=== PATIENT | female | born 1975 | race Two or more races ===

== ENCOUNTER 2016-11-06 19:27 | Emergency (ER) | payer MEDICAID ==
[~2016-11-06] VITALS: Ht 165.1 cm; Wt 72.6 kg
[2016-11-06 19:30] VITALS: BP 122/86
--- NOTE | 2016-11-06 19:40 | Emergency Room Report ---
History of Present Illness General Chief Complaint: Abdominal Pain Source: Patient, EMS Present Illness HPI 41YOF BIBEMS with acute left sided abd pain with nausea/vomiting for last 30 minutes. No associated fever/chills, urinary complaints, diarrhea. No previous abd pelvic surgery. Denies DM, HTN, other medical problems. Received PO zofran from EMS with improvement. No sick contacts. Allergies: Coded Allergies: No Known Allergies (Unverified , 11/06/16) Patient History Past Medical History: none Past Surgical History: none Pertinent Family History: none Social History: Denies: alcohol use, drug use, smoking Last Menstrual Period: UNK Now: No Immunizations: UTD Reviewed Nursing Documentation: PMH: Agreed, PSxH: Agreed Nursing Documentation-PMH Hx Diabetes: Yes Review of Systems All Other Systems: negative except mentioned in HPI Physical Exam Vital Signs Date Time Temp Pulse Resp B/P Pulse Ox O2 Delivery O2 Flow Rate FiO2 11/06/16 19:17 98.1 86 18 119/82 98 Room Air Sp02 EP Interpretation: reviewed, normal General Appearance: normal inspection, well appearing, no apparent distress, alert, GCS 15, non-toxic, other Head: normocephalic, atraumatic Eyes: bilateral eye EOMI, bilateral eye PERRL ENT: normal ENT inspection, hearing grossly normal, normal voice Neck: normal inspection, full range of motion, supple, no bony tend Respiratory: normal inspection, lungs clear, normal breath sounds, no respiratory distress, no retraction, no wheezing Cardiovascular #1: regular rate, rhythm, no edema Gastrointestinal: normal inspection, normal bowel sounds, non tender, soft, no mass, no guarding, no hernia, no pulsatile mass, no rebound, other - No rebound , guarding or other peritoneal signs Genitourinary: no CVA tenderness Musculoskeletal: normal inspection, back normal, normal range of motion, Bharath' s Sign negative Neurologic: normal inspection, alert, oriented x3, responsive, inspector outside steam distribution III-XII nml as tested, motor strength/tone normal, speech normal Psychiatric: normal inspection, judgement/insight normal, mood/affect normal Skin: normal inspection, normal color, no rash Medical Decision Making Diagnostic Impression: Primary Impression: Left lateral abdominal pain Additional Impressions: Nausea & vomiting Qualified Codes: R11.2 - Nausea with vomiting, unspecified Pyelonephritis ER Course 41YOF with likely acute pyelo given grossly infected urine and left flank pain No leuks. Lactate normal. Afebrile. Improved with IV Abx. 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 No obstruction Advised PMD followup for concern for elevated glucose, possibly new onset diabetes DC home Last Vital Signs Date Time Temp Pulse Resp B/P Pulse Ox O2 Delivery O2 Flow Rate FiO2 11/06/16 19:17 98.1 86 18 119/82 98 Room Air Status: improved Disposition: HOME, SELF-CARE Scripts Ciprofloxacin Hcl* (CIPROFLOXACIN HCL*) 500 Mg Tablet 500 MG ORAL Q12H for 5 Days, #10 TAB 0 Refills Prov: GREG MORALES M.D. 11/06/16 GREG MORALES M.D. November 06, 2016 19:40
[2016-11-06] MEDS ORDERED: Ketorolac 30mg Inj IV ONE (19:45)
[2016-11-06 20:14] LABS: APPEARANCE,URINE SLIGHTLY CLOUDY; KETONES,URINE NEGATIVE (NEGATIVE); LEUKOCYTE ESTERASE ,URINE 2+ (NEGATIVE); NITRITE,URINE NEGATIVE (NEGATIVE); PH,URINE 5 (4.5-8.0); PROTEIN,URINE 2+ (NEGATIVE); UROBILINOGEN,URINE NORMAL MG/DL (0.0-1.0)
[2016-11-06 20:18] LABS: BASOPHILS % (AUTO) 1.5 % (0.0-2.0); EOSINOPHILS % (AUTO) 9.6 % (0.0-3.0); LYMPHOCYTES % (AUTO) 26.3 % (20.0-45.0); MEAN CORPUSCULAR HEMOGLOBIN 32.3 PG (27.0-31.0); MEAN CORPUSCULAR HGB CONC 36.7 G/DL (32.0-36.0); MEAN CORPUSCULAR VOLUME 88 FL (80-99); MEAN PLATELET VOLUME 6.7 FL (6.5-10.1); MONOCYTES % (AUTO) 8.8 % (1.0-10.0); NEUTROPHILS % (AUTO) 53.8 % (45.0-75.0); PLATELET COUNT 251 K/UL (150-450); RED BLOOD COUNT 5.09 M/UL (4.20-5.40); RED CELL DISTRIBUTION WIDTH 11.7 % (11.6-14.8); WHITE BLOOD COUNT 9.7 K/UL (4.8-10.8)
[2016-11-06 20:29] LABS: BACTERIA,URINE MODERATE /HPF; SQUAMOUS EPITHELIAL CELL,UR MODERATE /LPF (NONE/OCC)
[2016-11-06 20:30] LABS: ICTOTEST NEGATIVE
[2016-11-06 20:52] LABS: ALANINE AMINOTRANSFERASE 42 U/L (3-33); ALBUMIN/GLOBULIN RATIO 1.1 (1.0-2.7); ANION GAP 13 (5-15); ASPARTATE AMINO TRANSFERASE 29 U/L (5-40); CALCIUM 9.3 mg/dL (8.6-10.2); CARBON DIOXIDE 26 mEQ/L (20-30); CHLORIDE 98 mEQ/L (98-107); CREATININE 0.7 mg/dL (0.5-0.9); GLOMERULAR FILTRATION RATE > 60 mL/min (>60); HEMOLYSIS 9; LIPASE 61 U/L (< 60); SODIUM 137 mEQ/L (135-145); TOTAL PROTEIN 6.9 g/dL (6.6-8.7)
[2016-11-06 21:30] VITALS: BP 113/67
[2016-11-06] MEDS ORDERED: CIPROFLOXACIN500 M2 ORAL (21:49)
[2016-11-06 22:21] VITALS: BP 119/71
[2016-11-06 22:24] VITALS: BP 113/67
--- NOTE | 2016-11-07 11:07 | Diagnostic Imaging Report ---
Indication: Abdominal pain Technique: Continuous helical transaxial imaging of the abdomen and pelvis was obtained from the lung bases to the pubic symphysis. No intravenous contrast was administered. Coronal 2-D reformats were also obtained. Total Dose length Product (DLP): [address] Dose Index Volume (CTDIvol): 15 mGy Comparison: none Findings: Lung bases are essentially clear. Gallbladder is contracted. No nephrolithiasis or hydronephrosis identified. Normal appendix demonstrated. Large rim calcified mass in the uterus measuring 4.5 cm consistent with a fibroid. No free fluid or free air identified. Impression: No acute findings. Normal appendix Uterine fibroid [facility] has communicated the preliminary results to the Emergency Department. Their findings are largely concordant with this report. The CT scanner at [facility] is accredited by the [employer] and the scans are performed using dose optimization techniques as appropriate to a performed exam including Automatic Exposure control.
== END 2016-11-06 22:24 | disposition home or self-care (01) ==
LOC: EDBD 19:27 → EMR 19:59 → CANBEDREQ 21:42 → EMR 22:24
DX: R10.9 Unspecified abdominal pain (principal); R11.2 Nausea with vomiting, unspecified; N12 Tubulo-interstitial nephritis, not specified as acute or chronic
CPT/HCPCS: 36415; 74176; 80053; 81003; 81025; 83605; 83690; 85025; 87086; 96360; 96361; 96374; 96375; 99284; J1885; J1956; J2405

== ENCOUNTER 2019-01-19 09:10 | Emergency (ER) | payer MEDICAID ==
[~2019-01-19] VITALS: Ht 160 cm; Wt 79.4 kg
[~2019-01-19 09:10] MED LIST: CIPROFLOXACIN500 M2 ORAL
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
[2019-01-19] MEDS ORDERED: Ketorolac 60mg Inj IM ONE (09:30)
--- NOTE | 2019-01-19 09:51 | NUR ---
ED Nurse Note: UA SENT TO LAB
[2019-01-19 09:52] VITALS: BP 119/68
--- NOTE | 2019-01-19 10:23 | NUR ---
ED Nurse Note: patient came back from CT
[2019-01-19] MEDS ORDERED: UNOBMED (10:45)
[2019-01-19] MEDS ORDERED: IBUPROFEN600 MG ORAL (11:27)
[2019-01-19] MEDS ORDERED: CYCLOBENZAPRINE10 MG ORAL (11:27)
[2019-01-19 11:28] VITALS: BP 121/71
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
== END 2019-01-19 11:28 | disposition home or self-care (01) ==
LOC: EDBD 09:10 → EDUNIT# 09:28 → EMR 09:28
DX: R07.9 Chest pain, unspecified (principal); M54.2 Cervicalgia; V43.52XA Car driver injured in collision with other type car in traffic accident, initial encounter; Y92.410 Unspecified street and highway as the place of occurrence of the external cause; E11.9 Type 2 diabetes mellitus without complications
CPT/HCPCS: 71250; 72125; 81025; 96372; 99283